=== PATIENT | male | born 1960 | race Caucasian/White ===

== ENCOUNTER → 2019-02-06 | Outpatient (CLI) | payer OTHER ==
[~2019-02-06] MED LIST: CYCL10 PO; HYDACE5 PO; IBUP600 PO; PRED20 PO; VITB100 PO
== END | disposition home or self-care (01) ==
LOC: PLD 08:00 → LAB SHORT 08:00
DX: L82.1 Other seborrheic keratosis (principal)
CPT/HCPCS: 88305